=== PATIENT | female | born 1995 | race American Indian/Alaskan Native ===

== ENCOUNTER 2017-01-20 12:50 | Emergency (ER) | payer SELFPAY ==
--- NOTE | 2017-01-20 13:05 | Emergency Department Report ---
Chief Complaint: Chest Pain Stated Complaint: CHEST PAIN, TIGHTNESS,DIZZINESS Time Seen by Provider: 01/20/17 12:58 - HPI History of Present Illness: pt c/o chest pain, hand cramps, and dizziness. - ROS Review of Systems: pt very anxious in triage. difficult to obtain information - Exam Physical Exam: pt tearful. decrease rom to R hand MSE screening note: Focused history and physical exam performed. Due to findings the following was ordered: labs, ekg ED Disposition for MSE Condition: Stable
[2017-01-20 13:14] VITALS: BP 120/64
[2017-01-20 13:56] LABS: Basophils % (Auto) 0.4 % (0.0-1.8); Eosinophils % (Auto) 0.5 % (0.0-4.3); Hemoglobin 13.3 gm/dl (10.1-14.3); Mean Corpuscular HGB Conc 33 % (30-34); Mean Corpuscular Hemoglobin 30 pg (28-32); Mean Corpuscular Volume 90 fl (79-97); Platelet Count 224 K/mm3 (140-440); Red Blood Count 4.42 M/mm3 (3.65-5.03); Red Cell Distribution Width 13.2 % (13.2-15.2); White Blood Count 11.4 K/mm3 (4.5-11.0)
[2017-01-20 14:01] LABS: Urine Drugs of Abuse Note Disclamer
[2017-01-20 14:14] LABS: Alanine Aminotransferase 8 units/L (7-56); Albumin/Globulin Ratio 1.3 %; Alkaline Phosphatase 48 units/L (35-129); Anion Gap 19 mmol/L; BUN/Creatinine Ratio 15.71; Blood Urea Nitrogen 11 mg/dL (7-17); Calcium 8.9 mg/dL (8.4-10.2); Carbon Dioxide 23 mmol/L (22-30); Chloride 100.6 mmol/L (98-107); Glucose 83 mg/dL (65-100); Potassium 3.8 mmol/L (3.6-5.0); Sodium 139 mmol/L (137-145)
[2017-01-20 14:15] LABS: Bilirubin,Urine NEG (Negative); Blood,Urine NEG (Negative); Ketones,Urine TR mg/dL (Negative); Leukocyte Esterase,Urine TR (Negative); Nitrite,Urine NEG (Negative)
[2017-01-20 14:45] LABS: Mucus,Urine 4+ /HPF; RBC,Urine < 1.0 /HPF (0.0-6.0)
--- NOTE | 2017-01-20 15:39 | XRay Report ---
CHEST 2 VIEWS INDICATION: Chest pain. COMPARISON: 12/06/2014. FINDINGS: PA and lateral chest radiographs demonstrate normal cardiomediastinal silhouette. Clear lungs. Intact bones. CONCLUSION: No acute disease in the chest. Thank you for the opportunity to participate in this patient's care.
--- NOTE | 2017-01-21 14:53 | ED Elopement Review ---
ED Pt Elopement review - Results review Lab results: Laboratory Tests 01/20/17 01/20/17 01/20/17 13:30 13:30 13:30 WBC 11.4 H RBC 4.42 Hgb 13.3 Hct 40.0 MCV 90 MCH 30 MCHC 33 RDW 13.2 Plt Count 224 Lymph % (Auto) 31.5 Crosby % (Auto) 4.9 Eos % (Auto) 0.5 Baso % (Auto) 0.4 Lymph # 3.6 Crosby # 0.6 Eos # 0.1 Baso # 0.1 Seg Neutrophils % 62.7 Seg Neutrophils # 7.1 Sodium 139 Potassium 3.8 Chloride 100.6 Carbon Dioxide 23 Anion Gap 19 BUN 11 Creatinine 0.7 Estimated GFR > 60 BUN/Creatinine Ratio 15.71 Glucose 83 Calcium 8.9 Magnesium 2.00 Total Bilirubin 0.30 AST 13 ALT 8 Alkaline Phosphatase 48 Total Protein 7.0 Albumin 4.0 Albumin/Globulin Ratio 1.3 HCG, Qual Negative Urine Color Urine Turbidity Urine pH Ur Specific Worden Urine Protein Urine Glucose (UA) Urine Ketones Urine Blood Urine Nitrite Urine Bilirubin Urine Urobilinogen Ur Leukocyte Esterase Urine WBC (Auto) Urine RBC (Auto) U Epithel Cells (Auto) Urine Mucus Urine Opiates Screen Urine Methadone Screen Ur Barbiturates Screen Ur Phencyclidine Scrn Ur Amphetamines Screen U Benzodiazepines Scrn Urine Cocaine Screen U Marijuana (THC) Screen Drugs of Abuse Note Plasma/Serum Alcohol 01/20/17 01/20/17 01/20/17 13:30 13:58 13:58 WBC RBC Hgb Hct MCV MCH MCHC RDW Plt Count Lymph % (Auto) Crosby % (Auto) Eos % (Auto) Baso % (Auto) Lymph # Crosby # Eos # Baso # Seg Neutrophils % Seg Neutrophils # Sodium Potassium Chloride Carbon Dioxide Anion Gap BUN Creatinine Estimated GFR BUN/Creatinine Ratio Glucose Calcium Magnesium Total Bilirubin AST ALT Alkaline Phosphatase Total Protein Albumin Albumin/Globulin Ratio HCG, Qual Urine Color Lauren Urine Turbidity Clear Urine pH 5.0 Ur Specific Worden 1.031 H Urine Protein 100 mg/dl Urine Glucose (UA) Neg Urine Ketones Tr Urine Blood Neg Urine Nitrite Neg Urine Bilirubin Neg Urine Urobilinogen 2.0 Ur Leukocyte Esterase Tr Urine WBC (Auto) 2.0 Urine RBC (Auto) < 1.0 U Epithel Cells (Auto) 10.0 Urine Mucus 4+ Urine Opiates Screen Presumptive negative Urine Methadone Screen Presumptive negative Ur Barbiturates Screen Presumptive negative Ur Phencyclidine Scrn Presumptive negative Ur Amphetamines Screen Presumptive negative U Benzodiazepines Scrn Presumptive negative Urine Cocaine Screen Presumptive negative U Marijuana (THC) Screen Presumptive positive Drugs of Abuse Note Disclamer Plasma/Serum Alcohol < 0.01 - Call Back decision Pt Call Back Decision: Pt to F/U with PMD
== END 2017-01-20 17:30 | disposition left against medical advice (07) ==
LOC: ED 12:50
DX: R07.89 Other chest pain (principal); R42 Dizziness and giddiness; Z53.21 Procedure and treatment not carried out due to patient leaving prior to being seen by health care provider
CPT/HCPCS: 36415; 71020; 80053; 80307; 81001; 83735; 84703; 85025; 93005; 93010; G0480; 80320